=== PATIENT | male | born 1940 | race African-American/Black ===

== ENCOUNTER 2016-11-22 05:41 | Emergency (ER) | payer MEDICARE, MEDICAID ==
[~2016-11-22] VITALS: Ht 175.3 cm; Wt 84.8 kg
[~2016-11-22 05:41] MED LIST: ALLOPURINOL100 M1 ORAL; ANTIDIARRHEAL; CARVEDILOL3.125 MG PO; COREG3.125 MG ORAL; COUMADIN1 MG PO; GUAIFENESIN-CO118 M1 ORAL; ISOSORBIDE DINI10 MG PO; KALETRA; KALETRA 200-501 EACH ORAL; KALETRA GT; LORAZEPAM0.5 MG PO; LYRICA25 MG PO; NEVIRAPINE200 MG PO; PAMELOR10 MG PO; PRAVACHOL10 MG PO; PREVACID15 MG PO; SENSIPAR30 MG PO; TRAZADON; VICODIN 5-5001 EACH PO; ZITHROMAX250 MG ORAL; ZYLOPRIM100 MG PO; [UNRECOGNIZED DRUG - OTHER]; [UNRECOGNIZED DRUG - OTHER]; allopurinol; ativan; cholesterol pill; coreg; coumadin; norco; viramune
[2016-11-22 05:50] VITALS: BP 138/64
--- NOTE | 2016-11-22 06:01 | Emergency Room Report ---
History of Present Illness General Chief Complaint: Nosebleed Source: Patient (MONIQUE RANGEL M.D.) Present Illness HPI This is a 76-year-old male with a history of atrial fibrillation on Coumadin. He also has a history of renal failure on dialysis Friday, and Friday. He presents with nosebleed has been on and off for the last 2 days. His [place] doctor told him to hold his Coumadin after blood work. Continued to bleed. Mostly on the left side. This morning he woke up and cough with some bloody was concerned as when he came in. No active bleeding now. No trauma. No runny nose. No other complaint. (MONIQUE RANGEL M.D.) Allergies: Coded Allergies: Cabbage (Verified Allergy, Unknown, 11/22/16) EGG (Verified Allergy, Unknown, 11/22/16) NSAIDS (NON-STEROIDAL ANTI-INFLAMMA (Unverified Allergy, Unknown, 11/22/16) Uncoded Allergies: NASAIDS (Allergy, Unknown, 11/22/16) Patient History Past Medical History: see triage record, old chart reviewed, AFib, renal disease, dialysis Past Surgical History: other Pertinent Family History: none Social History: Denies: smoking Immunizations: other Reviewed Nursing Documentation: PMH: Agreed, PSxH: Agreed (MONIQUE RANGEL M.D.) Nursing Documentation-PMH Hx Hypertension: Yes Hx Asthma: No - ANXIETY Hx COPD: Yes - resp failure Hx Gastrointestinal Problems: No - HIV Hx Dialysis: Yes - CRF Hx Neurological Problems: Yes - Anxiety (MONIQUE RANGEL M.D.) Review of Systems Eye: Denies: blurred vision, eye pain ENT: Denies: ear pain, nose congestion, throat swelling Respiratory: Denies: cough, shortness of breath Cardiovascular: Denies: chest pain, palpitations Gastrointestinal: Denies: abdominal pain, diarrhea, nausea, vomiting Musculoskeletal: Denies: back pain, joint pain Skin: Denies: rash Neurological: Denies: headache, numbness Endocrine: Denies: increased thirst, increased urine Hematologic/Lymphatic: Denies: easy bruising All Other Systems: negative except mentioned in HPI (MONIQUE RANGEL M.D.) Physical Exam Vital Signs Date Time Temp Pulse Resp B/P Pulse Ox O2 Delivery O2 Flow Rate FiO2 11/22/16 05:39 98.4 86 16 118/64 100 Room Air vitals normal Sp02 EP Interpretation: reviewed, normal General Appearance: well appearing, no apparent distress, alert Head: normocephalic, atraumatic Eyes: bilateral eye EOMI, bilateral eye PERRL ENT: hearing grossly normal, normal pharynx, other - Nose: There is a large clot in the left naris. He has a polyp on the lateral aspect there was bleeding. This can be seen in after asking him to blow his nose. Right naris showed no bleeding. 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 He does not know about this. Neck: full range of motion, supple, no meningismus Respiratory: chest non-tender, lungs clear, normal breath sounds Cardiovascular #1: no murmur, normal capillary refill Gastrointestinal: normal bowel sounds, non tender, no mass, no organomegaly, no bruit, non-distended Musculoskeletal: back normal, normal range of motion Neurologic: alert, oriented x3 Psychiatric: mood/affect normal Skin: warm/dry (MONIQUE RANGEL M.D.) Medical Decision Making Diagnostic Impression: Primary Impression: Mild epistaxis Additional Impression: Atrial fibrillation Qualified Codes: I48.2 - Chronic atrial fibrillation ER Course Patient presents with epistaxis. Eating his anterior. There is no active bleeding now. I see no need for a packing. I gauze for tamponade. We'll check his INR level. I will sign this patient out to Dr. Roca. (MONIQUE RANGEL M.D.) ER Course Please defer to the initial note for the history examined the presentation At this time the patient's INR is at 3.5 Speaking to [facility], patient's INR yesterday was 4.5 Patient held his Coumadin yesterday At this time on reevaluation the 2 x 2 packing that was placed does not show any evidence of blood This is a fairly external Not, and not in line with a true packing Therefore patient is not placed on antibiotics Especially given the medication and her actions are possible And the patient has appropriate close outpatient followup Labs Test 11/22/16 06:07 White Blood Count 5.5 K/UL (4.8-10.8) Red Blood Count 3.74 M/UL (4.70-6.10) Hemoglobin 12.3 G/DL (14.2-18.0) Hematocrit 39.6 % (42.0-52.0) Mean Corpuscular Volume 106 FL (80-99) Mean Corpuscular Hemoglobin 32.9 PG (27.0-31.0) Mean Corpuscular Hemoglobin Concent 31.1 G/DL (32.0-36.0) Red Cell Distribution Width 15.6 % (11.6-14.8) Platelet Count 122 K/UL (150-450) Mean Platelet Volume 6.1 FL (6.5-10.1) Neutrophils (%) (Auto) 64.2 % (45.0-75.0) Lymphocytes (%) (Auto) 20.8 % (20.0-45.0) Monocytes (%) (Auto) 11.0 % (1.0-10.0) Eosinophils (%) (Auto) 3.3 % (0.0-3.0) Basophils (%) (Auto) 0.7 % (0.0-2.0) Prothrombin Time 37.0 SEC (9.30-11.50) Prothromb Time International Ratio 3.5 (0.9-1.1) Activated Partial Thromboplast Time 74 SEC (23-33) Sodium Level 142 mEQ/L (135-145) Potassium Level 4.7 mEQ/L (3.4-4.9) Chloride Level 94 mEQ/L (98-107) Carbon Dioxide Level 30 mEQ/L (20-30) Anion Gap 18 (5-15) Blood Urea Nitrogen 52 mg/dL (7-23) Creatinine 5.9 mg/dL (0.7-1.2) Estimat Glomerular Filtration Rate mL/min (>60) Glucose Level 94 mg/dL (74-106) Calcium Level 7.9 mg/dL (8.6-10.2) (ANGEL ROCA D.O.) Rhythm Strip Diag. Results EP Interpretation: yes Rate: 77 Rhythm: no PVC's, no ectopy, other - atrial fib (ANGEL ROCA D.O.) Last Vital Signs Date Time Temp Pulse Resp B/P Pulse Ox O2 Delivery O2 Flow Rate FiO2 11/22/16 05:39 98.4 86 16 118/64 100 Room Air Status: improved (MONIQUE RANGEL M.D.) Status: improved (ANGEL ROCA D.O.) Disposition: HOME, SELF-CARE Condition: Stable Patient Instructions: Nosebleed, [id number] Additional Instructions: Patient is provided with the discharge instructions notified to follow up with primary doctor in the next 2-3 days otherwise return to the er with any worsening symptoms. Please note that this report is being documented using DRAGON technology. This can lead to erroneous entry secondary to incorrect interpretation by the dictating instrument. MONIQUE RANGEL M.D. Nov 22, 2016 06:00 ANGEL ROCA D.O. Nov 22, 2016 07:41
[2016-11-22 06:49] LABS: BASOPHILS % (AUTO) 0.7 % (0.0-2.0); EOSINOPHILS % (AUTO) 3.3 % (0.0-3.0); LYMPHOCYTES % (AUTO) 20.8 % (20.0-45.0); MEAN CORPUSCULAR HEMOGLOBIN 32.9 PG (27.0-31.0); MEAN CORPUSCULAR HGB CONC 31.1 G/DL (32.0-36.0); MEAN CORPUSCULAR VOLUME 106 FL (80-99); MEAN PLATELET VOLUME 6.1 FL (6.5-10.1); NEUTROPHILS % (AUTO) 64.2 % (45.0-75.0); PLATELET COUNT 122 K/UL (150-450); RED BLOOD COUNT 3.74 M/UL (4.70-6.10); RED CELL DISTRIBUTION WIDTH 15.6 % (11.6-14.8); WHITE BLOOD COUNT 5.5 K/UL (4.8-10.8)
[2016-11-22 07:07] LABS: ANION GAP 18 (5-15); CALCIUM 7.9 mg/dL (8.6-10.2); CARBON DIOXIDE 30 mEQ/L (20-30); CHLORIDE 94 mEQ/L (98-107); CREATININE 5.9 mg/dL (0.7-1.2); HEMOLYSIS 6; POTASSIUM 4.7 mEQ/L (3.4-4.9); SODIUM 142 mEQ/L (135-145)
[2016-11-22 07:08] LABS: INR 3.5 (0.9-1.1)
[2016-11-22 07:30] VITALS: BP 137/69
[2016-11-22 09:30] VITALS: BP 137/69
== END 2016-11-22 09:30 | disposition home or self-care (01) ==
LOC: EDBD 05:41 → EMR 06:24
DX: R04.0 Epistaxis (principal); I48.91 Unspecified atrial fibrillation; Z79.01 Long term (current) use of anticoagulants; I12.0 Hypertensive chronic kidney disease with stage 5 chronic kidney disease or end stage renal disease; N18.6 End stage renal disease; Z99.2 Dependence on renal dialysis; F41.9 Anxiety disorder, unspecified; Z88.6 Allergy status to analgesic agent; Z91.012 Allergy to eggs
CPT/HCPCS: 36415; 80048; 85025; 85610; 85730; 87040; 99283